=== PATIENT | male | born 1975 | race African-American/Black ===

== ENCOUNTER 2020-01-04 21:23 | Emergency (ER) | payer SELFPAY ==
[~2020-01-04] VITALS: Ht 188 cm; Wt 84.1 kg
[~2020-01-04 21:23] MED LIST: CHOL100030 PO; FLUO-191 PO; RISP4 PO
[2020-01-05 02:09] VITALS: BP 104/64
== END 2020-01-05 02:30 | disposition home or self-care (01) ==
LOC: EMS 21:24
DX: F41.9 Anxiety disorder, unspecified (principal); F20.9 Schizophrenia, unspecified; F32.9 Major depressive disorder, single episode, unspecified; F17.210 Nicotine dependence, cigarettes, uncomplicated; Z48.00 Encounter for change or removal of nonsurgical wound dressing

== ENCOUNTER 2022-04-16 23:22 | Emergency (ER) | payer MEDICAID ==
[~2022-04-16] VITALS: Ht 165.1 cm; Wt 68.2 kg
[~2022-04-16 23:22] MED LIST changes: +FLUO-177 PO; -FLUO-191 PO; -RISP4 PO; +RISP4TAB73 PO
[2022-04-16 23:27] VITALS: BP 120/86
[2022-04-17] MEDS ORDERED: NEOMYCIN/POLYMYXIN B/HYDROCORT 10 ML OTIC SOLUTION AD ONE (01:45)
== END 2022-04-17 03:17 | disposition home or self-care (01) ==
LOC: EMS 23:22 → EDUNIT# 23:22 → EMS 04-17 03:17
DX: H60.91 Unspecified otitis externa, right ear (principal); F31.9 Bipolar disorder, unspecified; F41.9 Anxiety disorder, unspecified; F20.9 Schizophrenia, unspecified; Z87.891 Personal history of nicotine dependence; Z79.899 Other long term (current) drug therapy
CPT/HCPCS: 99283

== ENCOUNTER 2024-04-14 21:39 | Emergency (ER) | payer MEDICAID, OTHER ==
[~2024-04-14] VITALS: Ht 170.2 cm; Wt 85.0 kg
[~2024-04-14 21:39] MED LIST changes: -RISP4TAB73 PO; +RISP4TAB94 PO
[2024-04-14 21:46] VITALS: TEMP 98.2
[2024-04-15] MEDS: RisperiDONE 1 MG TABLET PO ONE (00:54)
[2024-04-15 03:35] VITALS: BP 129/71; PULSE 89; RESP 18
== END 2024-04-15 03:37 | disposition home or self-care (01) ==
LOC: EMS 21:39
DX: F25.9 Schizoaffective disorder, unspecified (principal); F15.21 Other stimulant dependence, in remission; F32.A Depression, unspecified
CPT/HCPCS: 93005; 99283